=== PATIENT | male | born 1985 | race Caucasian/White ===

== ENCOUNTER 2016-11-30 01:28 | Emergency (ER) | payer BC, OTHER ==
[~2016-11-30 01:28] MED LIST: AMIT100T2 PO; ATOR20TA15 PO; FLUO1TAB3 PO; LISI-515 PO; PRAZ1CAP PO; ZOFR4TAB3 SL
[2016-11-30 01:38] VITALS: BP 131/71; PULSE 109; RESP 20; TEMP 98.5; O2SAT 96
[2016-11-30 05:45] VITALS: BP 149/78; PULSE 89; RESP 19; TEMP 98; O2SAT 99
--- NOTE | 2016-11-30 05:58 | PD ---
HPI Chief Complaint: Psychiatric Symptoms Time Seen by Provider: 05:03 Travel History International Travel<30 days: No Contact w/Intl Traveler<30days: No Traveled to known affect area: No History of Present Illness HPI 31-year-old male with history of PTSD and bipolar disorder presents to the nursing department under Campos act transfer from [place]. Patient was medically cleared there. Per report the patient has been increasingly agitated over the last few days. He has not been sleeping. Patient denies any acute medical needs at this time. PFSH Past Medical History AAA: No ADD: No ADHD: No Alzheimer's Disease: No Anemia: No Arthritis: No Asthma: Yes Atrial Fibrillation: No Autoimmune Disease: No Blood Disorders: No Bipolar Disorder: Yes Anxiety: Yes Depression: No Heart Rhythm Problems: No Cancer: No Cardiac Catheterization: No Cardiomyopathy: No Cardiovascular Problems: No (not reported) Cerebral Palsy: No High Cholesterol: No Chemotherapy: No Chest Pain: No Congestive Heart Failure: No Cirrhosis: No COPD: No Cerebrovascular Accident: No Coronary Artery Disease: No Cystic Fibrosis: No Dementia: No Developmental Delay: No Diabetes: No Patient Takes Glucophage: No Dialysis: No Diminished Hearing: No Diverticulitis: No Deep Vein Thrombosis: No Endocrine: No Fibromyalgia: No Gastrointestinal Disorders: No Genetic Disorder: No GERD: No Glaucoma: No Gout: No Genitourinary: No Headaches: No Hepatitis: No Hiatal Hernia: No Heparin Induced Thrombocytopen: No Herniated Disk: No Hypertension: Yes Immune Disorder: No Inguinal Hernia: No Implanted Vascular Access Dvce: No Insomnia: Yes Kidney Stones: No Medical other: No Musculoskeletal: No Neurologic: No Parkinson's Disease: No Psychiatric: Yes Reproductive: No Respiratory: Yes Resp. Syncytial Virus (RSV): No Integumentary: No Immunizations Current: Yes Migraines: No Myocardial Infarction: No Pancreatitis: No Pneumonia: No Radiation Therapy: No Schizophrenia: No Seizures: No Shingles: No Sickle Cell Disease: No Sleep Apnea: No Thyroid Disease: No Ulcer: No Tetanus Vaccination: < 5 Years Influenza Vaccination: No ?: Not Menopausal: No Ectopic : No Ovarian Cysts: No Dilation and Curettage (D&C): No Tubal Ligation: No Past Surgical History Abdominal Aneurysm Repair: No Abdominal Surgery: Yes (APPENDICITIS) AICD: No Appendectomy: Yes Arteriovenous Shunt: No Cardiac Surgery: No Section: No Cholecystectomy: No Coronary Artery Bypass Graft: No Coronary Stent: No Ear Surgery: No Endocrine Surgery: No Eye Surgery: No Genitourinary Surgery: No Gynecologic Surgery: No Hysterectomy: No Insulin Pump: No Joint Replacement: No Mastectomy: No Neurologic Surgery: No Oral Surgery: Yes (WISDOM TEETH) Pacemaker: No Prostatectomy: No Thoracic Surgery: No Tonsillectomy: No Tympanostomy Tube: No Valve Replacement: No Other Surgery: No Family History Family Breast Cancer: No Family Myocardial Infarction: No Family Hypercholesterolemia: No Social History Alcohol Use: Yes Tobacco Use: Yes Substance Use: Yes Allergies-Medications (Allergen,Severity, Reaction): Coded Allergies: penicillin G (Unverified Allergy, Severe, RASH, 11/29/16) Penicillins (Verified Allergy, Unknown, 11/29/16) Reported Meds & Prescriptions Reported Meds & Active Scripts Active Reported Fluoxetine (Fluoxetine HCl) 20 Mg Tab 20 Mg PO DAILY Prazosin (Prazosin HCl) 1 Mg Cap 1 Mg PO HS Amitriptyline (Amitriptyline HCl) 100 Mg Tab 100 Mg PO HS Lisinopril 20 Mg Tab 20 Mg PO DAILY Atorvastatin (Atorvastatin Calcium) 20 Mg Tab 20 Mg PO HS Zofran Odt (Ondansetron Odt) 4 Mg Tab 4 Mg SL Q6HR PRN Review of Systems Except as stated in HPI: all other systems reviewed are Neg Physical Exam Narrative GENERAL: Well-nourished, well-developed male patient in no acute distress SKIN: Focused skin assessment warm/dry. HEAD: Normocephalic. EYES: No scleral icterus. No injection or drainage. NECK: Supple, trachea midline. No JVD or lymphadenopathy. CARDIOVASCULAR: Regular rate and rhythm without murmurs, gallops, or rubs. RESPIRATORY: Breath sounds equal bilaterally. No accessory muscle use. GASTROINTESTINAL: Abdomen soft, non-tender, nondistended. MUSCULOSKELETAL: No cyanosis, or edema. BACK: Nontender without obvious deformity. No CVA tenderness. Data Data Last Documented VS Vital Signs Date Time Temp Pulse Resp B/P (MAP) Pulse Ox O2 Delivery O2 Flow Rate FiO2 11/30/16 05:45 98.0 89 19 149/78 (101) 99 Room Air Orders Orders Psych Screen (11/30/16 01:51) Diet Regular Basic (11/30/16 Breakfast) MDM Medical Decision Making Medical Screen Exam Complete: Yes Emergency Medical Condition: Yes Medical Record Reviewed: Yes Differential Diagnosis Mood disorder versus personality disorder versus adjustment reaction disorder Narrative Course 31-year-old male presents to the emergency department as a transfer from [place] [facility] for psychiatric evaluation. Patient appears without distress. He reports no acute medical needs. He remains medically cleared to undergo psychiatric screening for further evaluation and disposition. Mental health screening discussed with the patient. Psychiatric screen ordered. Diagnosis Primary Impression: Bipolar 1 disorder Condition: Stable Tiara Guevara Nov 30, 2016 05:58
--- NOTE | 2016-11-30 14:57 | PD ---
History of Present Illness Chief Complaint: Psychiatric Symptoms Time Seen by Provider: 14:20 Travel History International Travel<30 Days: No Contact w/Intl Traveler<30days: No Known affected area: No Legal Status Legal Status: Campos Act Campos Act Comment: PATIENT MARGIE ACTED BY EBER JORDAN History of Present Illness: History of Present Illness HPI 31-year-old male with history of PTSD and bipolar disorder who presents to ED under Campos act as a transfer from [place]. Per report the patient has been increasingly agitated over the last few days. He has not been sleeping and has been more aggressive .The patient has been monitored here in [facility] and he has been sleeping and has not presented any agitation or aggressive behavior. Patient is alert, oriented,, calm, engaging. Speech is clear,logical , no pressure. There is no psychosis, no gabriele and no hypomania. No suicdal or homicidal ideation. The Patient reports that he has not been aggressive although he admits that he has bee irritable and "loud at times". Reports medication compliance. PFSH Past Medical History AAA: No ADD: No ADHD: No Alzheimer's Disease: No Anemia: No Arthritis: No Asthma: Yes Atrial Fibrillation: No Autoimmune Disease: No Blood Disorders: No Bipolar Disorder: Yes Anxiety: Yes Depression: No Heart Rhythm Problems: No Cancer: No Cardiac Catheterization: No Cardiomyopathy: No Cardiovascular Problems: No (not reported) Cerebral Palsy: No High Cholesterol: No Chemotherapy: No Chest Pain: No Congestive Heart Failure: No Cirrhosis: No COPD: No Cerebrovascular Accident: No Coronary Artery Disease: No Cystic Fibrosis: No Dementia: No Developmental Delay: No Diabetes: No Patient Takes Glucophage: No Dialysis: No Diminished Hearing: No Diverticulitis: No Deep Vein Thrombosis: No Endocrine: No Fibromyalgia: No Gastrointestinal Disorders: No Genetic Disorder: No GERD: No Glaucoma: No Gout: No Genitourinary: No Headaches: No Hepatitis: No Hiatal Hernia: No Heparin Induced Thrombocytopen: No Herniated Disk: No Hypertension: Yes Immune Disorder: No Inguinal Hernia: No Implanted Vascular Access Dvce: No Insomnia: Yes Kidney Stones: No Medical other: No Musculoskeletal: No Neurologic: No Parkinson's Disease: No Psychiatric: Yes Reproductive: No Respiratory: Yes Resp. Syncytial Virus (RSV): No Integumentary: No Immunizations Current: Yes Migraines: No Myocardial Infarction: No Pancreatitis: No Pneumonia: No Radiation Therapy: No Schizophrenia: No Seizures: No Shingles: No Sickle Cell Disease: No Sleep Apnea: No Thyroid Disease: No Ulcer: No Tetanus Vaccination: < 5 Years Influenza Vaccination: No ?: Not Menopausal: No Ectopic : No Ovarian Cysts: No Dilation and Curettage (D&C): No Tubal Ligation: No Past Surgical History Abdominal Aneurysm Repair: No Abdominal Surgery: Yes (APPENDICITIS) AICD: No Appendectomy: Yes Arteriovenous Shunt: No Cardiac Surgery: No Section: No Cholecystectomy: No Coronary Artery Bypass Graft: No Coronary Stent: No Ear Surgery: No Endocrine Surgery: No Eye Surgery: No Genitourinary Surgery: No Gynecologic Surgery: No Hysterectomy: No Insulin Pump: No Joint Replacement: No Mastectomy: No Neurologic Surgery: No Oral Surgery: Yes (WISDOM TEETH) Pacemaker: No Prostatectomy: No Thoracic Surgery: No Tonsillectomy: No Tympanostomy Tube: No Valve Replacement: No Other Surgery: No Psychiatric History Psychiatric History [place] [facility] [place] [address] [facility] for outpatietn History of Inpatient Treatment: Yes Guns or firearms in home: No Social History Single male. Lives with his mother. 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 Hx of Substance Use Treatment: Yes Family Psychiatric History Negative Allergies-Medications (Allergen,Severity, Reaction): Coded Allergies: penicillin G (Unverified Allergy, Severe, RASH, 11/29/16) Penicillins (Verified Allergy, Unknown, 11/29/16) Reported Meds & Prescriptions Reported Meds & Active Scripts Active Reported Fluoxetine (Fluoxetine HCl) 20 Mg Tab 20 Mg PO DAILY Prazosin (Prazosin HCl) 1 Mg Cap 1 Mg PO HS Amitriptyline (Amitriptyline HCl) 100 Mg Tab 100 Mg PO HS Lisinopril 20 Mg Tab 20 Mg PO DAILY Atorvastatin (Atorvastatin Calcium) 20 Mg Tab 20 Mg PO HS Zofran Odt (Ondansetron Odt) 4 Mg Tab 4 Mg SL Q6HR PRN Review of Systems Except as stated in HPI: all other systems reviewed are Neg Exam Alert: Yes [place]: Person (ox4) Mood: Calm Affect: Appropriate Speech: Clear, Logical Eye Contact: Normal Memory Intact: Comment (No impairmetn) Hallucinations: Other (Negative) Delusions: No Suicidal: Ideation (Deneis any) Homicidal: Ideation (Deneis any) Insight/Judgement Fair . Not impaired. MDM Medical Decision Making Medical Record Reviewed: Yes Assessment/Plan 31-year-old male with history of PTSD and bipolar disorder who presents to ED under Campos act as a transfer from [place]. Per report the patient has been increasingly agitated over the last few days. He has not been sleeping and has been more aggressive .The patient has been monitored here in [facility] . He has been sleeping and has not presented any agitation or aggressive behavior or any signs of gabriele or hypomania. Patient does not meet criteria for Ba and it will be lifted. Psychiatrically cleared for discharge. To follow up with his outpatient psychiatric provider. Orders Orders Psych Screen (11/30/16 01:51) Diet Regular Basic (11/30/16 Breakfast) Diet Regular Basic (11/30/16 Lunch) Results Vital Signs Date Time Temp Pulse Resp B/P (MAP) Pulse Ox O2 Delivery O2 Flow Rate FiO2 11/30/16 05:45 98.0 89 19 149/78 (101) 99 Room Air 11/30/16 01:38 98.5 109 20 131/71 (91) 96 Room Air Diagnosis Primary Impression: Bipolar 1 disorder Psychiatrically Cleared: Yes Med/ Other Pt Specific Info: No Change to Meds Disposition: 01 DISCHARGE HOME Condition: Stable Keke Gandara Nov 30, 2016 14:57
[2016-11-30 17:19] VITALS: BP 147/85; PULSE 88; RESP 16; TEMP 98.2; O2SAT 99
--- NOTE | 2016-11-30 17:34 | PD ---
Physical Exam Time Seen by Provider: 17:29 Narrative SOLITARIO Davies evaluated the patient, lifted the Campos act and the patient will be discharged home. Data Data Last Documented VS Vital Signs Date Time Temp Pulse Resp B/P (MAP) Pulse Ox O2 Delivery O2 Flow Rate FiO2 11/30/16 17:19 98.2 88 16 147/85 (105) 99 Room Air Orders Orders Psych Screen (11/30/16 01:51) Diet Regular Basic (11/30/16 Breakfast) Diet Regular Basic (11/30/16 Lunch) Diet Regular Basic (11/30/16 Dinner) MDM Supervised Visit with FAN: Yes Narrative Course SOLITARIO Davies has evaluated the patient, lifted the Campos act and the patient will be discharged home. Patient contracts safety. Denies suicidal or homicidal ideations. Patient will be provided community resource packet to [facility] for follow-up. Has friends and family for support. Patient is medically cleared for discharge. Diagnosis Primary Impression: Bipolar 1 disorder Referrals: [facility] Psychiatrist [facility] Additional Instruction: Contract safety to your self and others Follow-up with psychiatry Follow-up with primary care provider Follow-up with Pavel Soler Return to the emergency department immediately with worsening of symptoms Med/Other Pt SpecificInfo: No Meds Exist/No RX given Disposition: 01 DISCHARGE HOME Condition: Stable Melinda Ambrosio Nov 30, 2016 17:34
== END 2016-11-30 18:30 | disposition home or self-care (01) ==
LOC: NEPJ 01:28
DX: F31.9 Bipolar disorder, unspecified (principal); J45.909 Unspecified asthma, uncomplicated; I10 Essential (primary) hypertension; Z72.0 Tobacco use
CPT/HCPCS: 99284

== ENCOUNTER 2017-01-01 23:00 | Inpatient (IN) | payer BC, OTHER ==
[2017-01-02] MEDS ORDERED: diphenhydrAMINE HCL 50 MG CAP - HS PRN PO (00:30)
[2017-01-02] MEDS ORDERED: ALUMINUM/MAGNESIUM/SIMETH 30 ML CUP PO PRN (00:30)
[2017-01-02] MEDS ORDERED: BENZTROPINE MESYLATE 2 MG/2 ML VIAL IM PRN (00:30)
[2017-01-02] MEDS ORDERED: BENZTROPINE MESYLATE 1 MG TAB PO PRN (00:30)
[2017-01-02] MEDS ORDERED: LORazepam 1 MG TAB PO PRN ×2 (00:30→11:45)
[2017-01-02] MEDS ORDERED: LORazepam 2 MG/ML VIAL IM PRN (00:30)
[2017-01-02] MEDS ORDERED: MAGNESIUM HYDROXIDE SUSP 30 ML CUP PO PRN (00:30)
[2017-01-02] MEDS ORDERED: diphenhydrAMINE HCL 50 MG/ML VIAL - HS PRN IM (00:30)
[2017-01-02 00:41] VITALS: BP 139/83; PULSE 101; RESP 18; TEMP 98.2
--- NOTE | 2017-01-02 08:56 | HHI.HP ---
Provisional Diagnosis Admission Date Jan 01, 2017 at 23:00 Crane I. 1. Bipolar disorder, presently manic, moderate Rule out component of drug-induced mood disorder 2. Cannabis abuse Crane II. Deferred Certification of Person's Competence To Provide Express and Informed Consent I have personally examined Brock Marrero , a person being served at [facility] on, Jan 02, 2017 08:56. Express and informed consent means consent voluntarily given in writing, by a competent person, after sufficient explanation and disclosure of the subject matter involved to enable the person to make a knowing and willful decision without any element of force, fraud, deceit, duress, or other form of constraint or coercion. This person is 18 years of age or older, is not now known to be incompetent to consent to treatment with a guardian advocate, and does not have a health care surrogate or proxy currently making medical treatment decisions. I have found this person to be one of the following: [x] Competent to provide express and informed consent, as defined above, for voluntary admission to this facility and is competent to provide express and informed consent for treatment. He/she has the consistent capacity to make well reasoned, willful, and knowing decisions concerning his or her medical or mental health treatment. The person fully and consistently understands the purpose of the admission for examination/placement and is fully capable of personally exercising all rights assured [place] Incompetent to provide express and informed consent to voluntary admission, and this is incompetent to provide express and informed consent to treatment. The person must be transferred to involuntary status and a petition for a guardian advocate filed with the Circuit Court. [] Refusing to provide express and informed consent to voluntary admission but is competent to provide express and informed consent for treatment. The person must be discharged or transferred to involuntary status. Form shall be completed within 24 hours of a person's arrival at the receiving facility and filed in the clinical record of each person: 1. Admitted on a voluntary basis 2. Permitted to provide express and informed consent to his/her own treatment 3. Allowed to transfer from involuntary to voluntary status 4. Prior to permitting a person to consent to his or her own treatment after having been previously found incompetent to consent to treatment. History of Present Illness Capacity: Has Capacity Psych Chief Complaint: Diane HPI Mr. Marrero is a 31-year-old male with a reported history of bipolar disorder and posttraumatic stress disorder who presents in transfer from [facility] under a [facility] act. Reviewing the documentation from [facility] made appears that the patient was brought into the emergency department by his mother and brother because he "walked until he got blisters on his feet." Collateral obtained by the psychiatric screener in the emergency department at [facility] indicates that the patient has been spending excessively and presented with rapid speech and flight of ideas. Reviewing our own electronic medical record, I note that the patient was evaluated by nurse practitioner Juliocesar on 11/30/2016. I also note the patient was psychiatrically admitted under Dr. Barbosa in June of last year. Patient seen and examined. Chart reviewed. Case discussed in treatment team. Case discussed with nursing staff. I find the patient clad in a T-shirt with cannabis leaves. He presents with rapid speech and loosening of associations. He says that he has been sleeping poorly and has been smoking cannabis "to calm down." This cannabis is reportedly prescribed to him by a Dr. Bryson for PTSD , although when I asked what his trauma was, he tells me "every day is a grind and I'd rather be smoking weed." He says that because he couldn't sleep he instead decided to wander for miles because ideas were "bouncing around" in his head. Mood is "I feel great!" He is somewhat grandiose and describes a plan to found an [employer] school to link [place] students and Greek students. Somewhat disinhibited; when I ask about marital status he replies "I'm looking if you're interested. I like doctors." Denies AVH. No other delusional material. No depressive symptoms. No frandy liv PTSD symptoms. Remainder of the psychiatric ROS is negative. Patient verbalizes no physical complaints besides foot pain. Past psychiatric history: The patient reports a history of PTSD and bipolar disorder. He says that he sees a psychiatrist "online" whose name he does not know, perhaps referring to telepsychiatry. He says that he is prescribed amitriptyline, Prozac and prazosin. He says that his most recent psychiatric admission was here at [place]. He denies a history of suicide attempts. With the patient's permission, I have obtained collateral information from his mother, Melva Marrero, over the phone. She notes patient has had a BPAD diagnosis for 6 years. He reportedly has been seeing a psychiatrist online who Rx'd Xanax and amitriptyline. Mother notes he has chronic sleep difficulties. He started medical cannabis to try to sleep but immediately began abusing it per mother. She tells me he has a history of substance use issues including DUI and hammer driver's license has been revoked. She already tried to [place] act him during this episode but says the petition was declined by the operations trainer. Mother tried to take pt in for voluntary psych eval earlier in the week because he was in a manic state but patient declined; he ended up walking several miles. She notes that he has not done well with lithium or Seroquel. Review of Systems ROS Limitations: Poor Historian Except as stated in HPI: all other systems reviewed are Neg Past Psych History Psychological trauma history Patient denies any history of physical, verbal or sexual abuse or other trauma. Violence risk - others (6 mos) Low imminent risk. No homicidal ideation. No known history of violence. Violence risk - self (6 mos) Concern for elevated risk due to self-neglect in manic state. Denies suicidal ideation. Denies a history of suicide attempts. Substance Abuse History Drugs/Alcohol past 12 months Patient reports that he is prescribed medical cannabis and uses this daily for a diagnosis of "PTSD." He drinks about 1 beer daily. He smokes cigarettes and cigars. Denies any other substance use. Past Family Social History Coded Allergies: penicillin G (Unverified Allergy, Severe, RASH, 11/29/16) Penicillins (Verified Allergy, Unknown, 11/29/16) Past Medical History Patient endorses a history of hypertension and hyperlipidemia. Reported Medications Fluoxetine (Fluoxetine) 20 Mg Tab, 20 MG PO DAILY, #30 TAB 0 Refills 11/29/16 Prazosin (Prazosin) 1 Mg Cap, 1 MG PO HS for Blood Pressure Management, #60 CAP 0 Refills 11/29/16 Amitriptyline (Amitriptyline) 100 Mg Tab, 100 MG PO HS, TAB 11/29/16 Lisinopril (Lisinopril) 20 Mg Tab, 20 MG PO DAILY, #30 TAB 0 Refills 11/29/16 Atorvastatin (Atorvastatin) 20 Mg Tab, 20 MG PO HS for Cholesterol Management, # 30 TAB 0 Refills 11/29/16 Ondansetron Odt (Zofran Odt) 4 Mg Tab, 4 MG SL Q6HR Y for Nausea/Vomiting, #30 TAB 0 Refills 11/29/16 Current Medications Medications (Trade) Dose Ordered Sig/Su Route Start Time Stop Time Status Last Admin (Ativan) 1 mg Q6H PRN PO 01/02/17 00:30 (Ativan Inj) 1 mg Q6H PRN IM 01/02/17 00:30 (Cogentin) 1 mg Q12H PRN PO 01/02/17 00:30 (Cogentin Inj) 1 mg Q12H PRN IM 01/02/17 00:30 (Benadryl) 50 mg HS PRN PO 01/02/17 00:30 (Benadryl Inj) 50 mg HS PRN IM 01/02/17 00:30 (Tylenol) 650 mg Q4H PRN PO 01/02/17 00:30 (Milk Of Magnesia Liq) 30 ml DAILY PRN PO 01/02/17 00:30 (Mag-Al Plus Susp Liq) 30 ml Q6H PRN PO 01/02/17 00:30 (Habitrol 21 Mg Patch.24 Hr) 1 patch DAILY T-DERMAL 01/02/17 09:00 Miscellaneous Information 1 HS T-DERMAL 01/02/17 21:00 Family Psych History Patient denies any family psychiatric history Social History Patient reports that he lives with his mother. He reports that he has a bachelor's degree in [employer] from [employer]. 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 He is single with no children. He says he spent 9 years in the [employer] but was dishonorably discharged because of his substance use. He denies any legal history. He does endorse rastafarian beliefs. Patient's Strengths (min. 2) In a monitored setting. Verbally fluent. Physical Exam Physical examination was completed by ED provider at outside hospital. On my examination today, the patient appears to be in no acute physical distress. I do note that his bilateral feet are mildly swollen with a few blisters evident. No abnormal motor movements noted. Labs and vitals reviewed: Vital Signs Vital Signs Date Time Temp Pulse Resp B/P (MAP) Pulse Ox O2 Delivery O2 Flow Rate FiO2 01/02/17 00:41 98.2 101 18 139/83 (101) Lab Results Urine toxicology positive for cannabinoids. CBC reveals mild anemia with a hemoglobin of 13.2. BMP reveals mildly elevated creatinine at 1.69. TSH within normal limits. Alcohol level undetectable. Urinalysis reveals 1+ protein. Mental Status Examination Appearance: Appropriate Consciousness: Alert Orientation: x4 Motor Activity: Normal gait, Other (no motor abnormalities noted) Speech: Pressured Language: Adequate Fund of Knowledge: Adequate Attention and Concentration: Easily Distracted Memory: Unremarkable Mood: Other ("great!") Affect: Other (expansive) Thought Process & Associations: Loose associations Thought Content: Other (grandiosity) Hallucination Type: None Delusion Type: Other (grandiosity, unclear if of delusional intensity) Suicidal Ideation: No (unreliable to contract for safety) Suicidal Plan: No Suicidal Intention: No Homicidal Ideation: No Homicidal Plan: No Homicidal Intention: No Insight: Poor Judgment: Poor Assessment & Plan Problem List: (1) Bipolar 1 disorder, manic, moderate ICD Codes: F31.12 - Bipolar disorder, current episode manic without psychotic features, moderate (2) Cannabis abuse ICD Codes: F12.10 - Cannabis abuse, uncomplicated Assessment & Plan 31-year-old male with psychiatric history as detailed above who presents in transfer from outside hospital under a Campos act. On my examination today, the patient presents in a manic state of moderate severity. I suspect current episode was precipitated by cannabis use, and his use of substances including the cannabis does seem to be problematic both based on his own report and collateral from mother. Given the severity of his symptoms and the concern for self-care deficit, patient requires psychiatric hospitalization at this time for safety, observation and stabilization. Admit inpatient. Voluntary status. Check EKG, CMP and CK. So long as LFTs ok , plan to start Depakote ER ~25mg/kg for mood stabilization. Given the magnitude of the dose, I will plan to administer this in divided doses. Plan to check a Depakote and ammonia level after the appropriate interval. Additionally for mood stabilization and for sleep, start Zyprexa 10mg qHS with plans to titrate to effect. R/B/A for both Zyprexa and Depakote d/w pt. Given that the patient was reportedly recently prescribed Xanax and may have been abusing this medication, I will start the patient on a CIWA scale with Ativan for the management of any withdrawal. Seizure and fall precautions. Atarax as needed for anxiety, Cogentin as needed for EPS, Benadryl his need for sleep. Continue patient's lisinopril and atorvastatin for hypertension and hyperlipidemia; nurse has confirmed doses with patient's pharmacy. Consult to the hospitalist for patient's feet as well as history of hypertension and hyperlipidemia. OT eval. Vitals every shift. Counselor to see. Disposition planning. Estimated length of stay: 5-7 days. Discharge Planning Pending psychiatric stabilization Request HC Surrog/Guard Advoc?: No (not at this time) Brock Page MD Jan 02, 2017 08:56
[2017-01-02] MEDS: NICOTINE 21 MG/24 HR PATCH T-DERMAL SCH (09:08)
[2017-01-02] MEDS ORDERED: LORazepam 2 MG TAB PO PRN (11:45)
[2017-01-02] MEDS ORDERED: LORazepam 2 MG/ML VIAL IV PUSH PRN ×4 (11:45)
[2017-01-02] MEDS ORDERED: DIVALPROEX SODIUM E.R. 500 MG TAB PO SCH (11:45)
[2017-01-02] MEDS ORDERED: FLUMAZENIL 0.5 MG/5 ML VIAL IV PUSH PRN (11:45)
[2017-01-02 12:19] VITALS: BP 174/90; PULSE 96; RESP 14; TEMP 97.5; O2SAT 98
[2017-01-02] MEDS ORDERED: cloNIDine HCL 0.1 MG TAB PO PRN (13:15)
[2017-01-02] MEDS: DIVALPROEX SODIUM E.R. 500 MG TAB PO SCH ×2 (13:16→20:58)
[2017-01-02] MEDS: DIVALPROEX SODIUM E.R. 250 MG TAB PO SCH ×2 (13:16→20:58)
[2017-01-02] MEDS: ACETAMINOPHEN 325 MG TAB PO PRN (13:31)
[2017-01-02] MEDS: LISINOPRIL 20 MG TAB PO SCH (14:00)
--- NOTE | 2017-01-02 14:11 | PD.CONS ---
HPI Service [facility] Consult Requested By Dr. Page Reason for Consult Medical management Primary Care Physician Unknown Diagnoses: (1) Hypertension (2) Bipolar 1 disorder, manic, moderate History of Present Illness 31 Y/O male with history of HTN, bipolar disorder admitted to the psychiatric unit for exacerbation of bipolar. Patient has been manic and walking long distances. His blood pressure uncontrolled in arrival. Patient denies any issues except for mild swelling of his feet which he attributes to a lot of walking in bad shoes. He also eat a lot of salt daily. Review of Systems Constitutional: DENIES: Fever, Chills Respiratory: DENIES: Shortness of breath Cardiovascular: DENIES: Chest pain, Palpitations Except as stated in HPI: all other systems reviewed are Neg Past Family Social History Allergies: Coded Allergies: penicillin G (Unverified Allergy, Severe, RASH, 11/29/16) Penicillins (Verified Allergy, Unknown, 11/29/16) Past Medical History HTN Bipolar Past Surgical History Appendectomy Reported Medications Reported Meds & Active Scripts Active Reported Fluoxetine (Fluoxetine HCl) 20 Mg Tab 20 Mg PO DAILY Prazosin (Prazosin HCl) 1 Mg Cap 1 Mg PO HS Amitriptyline (Amitriptyline HCl) 100 Mg Tab 100 Mg PO HS Lisinopril 20 Mg Tab 20 Mg PO DAILY Atorvastatin (Atorvastatin Calcium) 20 Mg Tab 20 Mg PO HS Zofran Odt (Ondansetron Odt) 4 Mg Tab 4 Mg SL Q6HR PRN Family History Non contributory. Social History Admits to using alcohol, tobacco, and multiple illicit substance Physical Exam Vital Signs Vital Signs Date Time Temp Pulse Resp B/P (MAP) Pulse Ox O2 Delivery O2 Flow Rate FiO2 01/02/17 12:19 97.5 96 14 174/90 (118) 98 01/02/17 00:41 98.2 101 18 139/83 (101) Physical Exam GENERAL: No apparent distress. SKIN: Bilateral feet with multiple punctate lesions consistent with insect bites. HEAD: Atraumatic. Normocephalic. No temporal or scalp tenderness. EYES: Pupils equal round and reactive. ENT: Nose drainage. Uvula midline. Airway patent. NECK: Trachea midline. No JVD or lymphadenopathy. Supple, nontender, no meningeal signs. CARDIOVASCULAR: Regular rate and rhythm without murmurs, gallops, or rubs. RESPIRATORY: Clear to auscultation. Breath sounds equal bilaterally. No wheezes , rales, or rhonchi. GASTROINTESTINAL: Abdomen soft, non-tender, nondistended. MUSCULOSKELETAL: Extremities without clubbing, cyanosis, or edema. No joint tenderness, effusion, or edema noted. No calf tenderness. Negative Homans sign bilaterally. NEUROLOGICAL: Awake and alert. Cranial nerves II through XII intact. Motor and sensory grossly within normal limits. Five out of 5 muscle strength in all muscle groups. Normal speech. Assessment and Plan Problem List: (1) Bipolar 1 disorder, manic, moderate ICD Code: F31.12 - Bipolar disorder, current episode manic without psychotic features, moderate Plan: Management per psychiatry. (2) Hypertension ICD Code: I10 - Essential (primary) hypertension Plan: Continue Lisinopril. Clonidine PRN Monitor BP. Advised patient to reduce salt intake Elevate legs Assessment and Plan Patient is medically stable. Will sign off. Please call or reconsult as needed. Nasim Vogt MD Jan 02, 2017 14:11
[2017-01-02 15:24] VITALS: BP 154/82; PULSE 90; RESP 17; TEMP 97.9; O2SAT 100
[2017-01-02 15:30] LABS: ALKALINE PHOSPHATASE 54 U/L (45-117); CREATINE KINASE 157 U/L (39-308); TOTAL BILIRUBIN ADULT 0.2 MG/DL (0.2-1.0)
[2017-01-02 15:36] LABS: ALT (GPT) 29 U/L (12-78); ANION GAP 7 MEQ/L (5-15); AST (GOT) 21 U/L (15-37); BICARBONATE 30.1 MEQ/L (21.0-32.0); BLOOD UREA NITROGEN 11 MG/DL (7-18); CHLORIDE 102 MEQ/L (98-107); GLOMERULAR FILTRATION RATE 101 ML/MIN (>89); POTASSIUM 4.1 MEQ/L (3.5-5.1); SODIUM (NA) 139 MEQ/L (136-145)
[2017-01-02 16:44] VITALS: BP 154/82; PULSE 90; RESP 18; TEMP 97.9; O2SAT 100
[2017-01-02] MEDS: hydrOXYzine HCL 50 MG TAB PO PRN (20:58)
[2017-01-02] MEDS ORDERED: ATORVASTATIN 20 MG TAB PO SCH (21:00)
[2017-01-02] MEDS ORDERED: OLANZapine ODT 10 MG TAB PO SCH (21:00)
[2017-01-02] MEDS ORDERED: REMOVE OLD NICOTINE PATCH T-DERMAL SCH (21:00)
--- NOTE | 2017-01-02 21:17 | EKG ---
Date Performed: 01/02/2017 Time Performed: 12:33:19 PTAGE: 31 years EKG: SINUS TACHYCARDIA ABNORMAL RHYTHM ECG PREVIOUS TRACING : 05/27/2014 22.35 Compared to prior tracing no significant change DOCTOR: Mian Slater Interpretating Date/Time 01/02/2017 21:15:12
[2017-01-03 05:45] VITALS: BP 140/84; PULSE 84; RESP 17; TEMP 98; O2SAT 99
[2017-01-03] MEDS: ACETAMINOPHEN 325 MG TAB PO PRN ×2 (06:49→12:26)
[2017-01-03] MEDS: NICOTINE 21 MG/24 HR PATCH T-DERMAL SCH (06:49)
[2017-01-03] MEDS: DIVALPROEX SODIUM E.R. 500 MG TAB PO SCH (08:57)
[2017-01-03] MEDS: DIVALPROEX SODIUM E.R. 250 MG TAB PO SCH (08:57)
[2017-01-03] MEDS: hydrOXYzine HCL 50 MG TAB PO PRN (08:58)
[2017-01-03] MEDS: LISINOPRIL 20 MG TAB PO SCH (08:58)
[2017-01-03] MEDS ORDERED: ZYPR10TA PO (09:43)
[2017-01-03] MEDS ORDERED: DEPA500T3 PO (09:43)
--- NOTE | 2017-01-03 09:43 | HHI.DS ---
Psychiatry Discharge Summary Inpatient Psychiatric care?: Yes Advance Directive: No Reason Not Provided: doesn t have Mental Health AdvanceDirective: No Health Care Proxy: No Admission Admission Date Jan 01, 2017 at 23:00 Admission Diagnosis: (1) Bipolar 1 disorder, manic, moderate ICD Code: F31.12 - Bipolar disorder, current episode manic without psychotic features, moderate (2) Cannabis abuse ICD Code: F12.10 - Cannabis abuse, uncomplicated Brief History Mr. Marrero is a 31-year-old male with a reported history of bipolar disorder and posttraumatic stress disorder who presents in transfer from [facility] under a Campos act. Reviewing the documentation from [facility] made appears that the patient was brought into the emergency department by his mother and brother because he "walked until he got blisters on his feet." Collateral obtained by the psychiatric screener in the emergency department at [facility] indicates that the patient has been spending excessively and presented with rapid speech and flight of ideas. Reviewing our own electronic medical record, I note that the patient was evaluated by nurse practitioner Juliocesar on 11/30/2016. I also note the patient was psychiatrically admitted under Dr. Barbosa in June of last year. Patient seen and examined. Chart reviewed. Case discussed in treatment team. Case discussed with nursing staff. I find the patient clad in a T-shirt with cannabis leaves. He presents with rapid speech and loosening of associations. He says that he has been sleeping poorly and has been smoking cannabis "to calm down." This cannabis is reportedly prescribed to him by a Dr. Bryson for PTSD , although when I asked what his trauma was, he tells me "every day is a grind and I'd rather be smoking weed." He says that because he couldn't sleep he instead decided to wander for miles because ideas were "bouncing around" in his head. Mood is "I feel great!" He is somewhat grandiose and describes a plan to found an [employer] school to link [place] students and [place] students. Somewhat disinhibited; when I ask about marital status he replies "I'm looking if you're interested. I like doctors." Denies AVH. No other delusional material. No depressive symptoms. No frandy liv PTSD symptoms. Remainder of the psychiatric ROS is negative. Patient verbalizes no physical complaints besides foot pain. Past psychiatric history: The patient reports a history of PTSD and bipolar disorder. He says that he sees a psychiatrist "online" whose name he does not know, perhaps referring to telepsychiatry. He says that he is prescribed amitriptyline, Prozac and prazosin. He says that his most recent psychiatric admission was here at [facility]. He denies a history of suicide attempts. With the patient's permission, I have obtained collateral information from his mother, Melva Marrero, over the phone. She notes patient has had a BPAD diagnosis for 6 years. He reportedly has been seeing a psychiatrist online who Rx'd Xanax and amitriptyline. Mother notes he has chronic sleep difficulties. He started medical cannabis to try to sleep but immediately began abusing it per mother. 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 She already tried to [place] act him during this episode but says the petition was declined by the cushion builder. Mother tried to take pt in for voluntary psych eval earlier in the week because he was in a manic state but patient declined; he ended up walking several miles. She notes that he has not done well with lithium or Seroquel. Tobacco Use In Past 30 Days: 5 or More Cigarettes/Day Alcohol Use: 2-4 Times Per Month Hospital Course Patient was admitted to a locked, inpatient psychiatric unit. A general medical consultation was obtained. Appropriate precautions were in place throughout patient's hospital stay. Patient was seen and examined on the unit by psychiatry and also visited by counselor. Psychotropic medications were adjusted. Patient tolerated medications well without side effects. There was no evidence of any suicidality or homicidality on the inpatient unit. The patient remained in generally good behavioral control and was compliant with medications. Once allowed to sign voluntary, the patient immediately completed a right of release, set to today. On the day of discharge: Patient seen and examined with nurse. Chart reviewed. Hospitalist input noted and appreciated. Case discussed with nursing staff. No behavioral issues noted overnight. Case discussed with counselor. On my examination today, the patient is insisting on discharge from the inpatient unit today. He denies any suicidal or homicidal ideation, intent or plan on direct questioning and contracts for safety. He is future oriented. Mood remains a little elevated and affect somewhat expansive. Speech remains pressured and he is somewhat intrusive. He does say that he slept well overnight with the addition of Zyprexa. No other hypomanic or manic symptoms. No depressive symptoms elicited. No psychotic symptoms: No audiovisual hallucinations or delusional material. He says that his plan on discharge is to withdraw money from his bank across the street, go to his medical cannabis dispensary, and check in to a local upscale hotel with a steak house where he can get a rare steak. He denies side effects from medications. No physical complaints. Weighing the acute, chronic, and protective factors and based on the available evidence, I cushion builder to a reasonable degree of medical certainty that the patient does not presently meet criteria for involuntary psychiatric hospitalization. However, he does remain somewhat manic, and I have conveyed to the patient that he would very much benefit from additional inpatient psychiatric stabilization. He has declined to remain on the inpatient unit, and given that I have no basis to retain him involuntarily, I will arrange for his discharge AGAINST MEDICAL ADVICE. I have explained to the patient that he is leaving AGAINST MEDICAL ADVICE. Psychiatric follow-up as arranged by counselor. Patient also to follow -up with primary care. I have recommended that the patient abstain from use of cannabis and other substances of abuse as I do believe that it is deleterious to his mental health. I have counseled the patient regarding warning signs for need to return to the psychiatric emergency room as part of a general safety plan. I will continue the patient's Zyprexa on discharge. I will decrease the dose of patient's Depakote on discharge as I am not confident that he will obtain the requisite Depakote level and so the risks of Depakote toxicity outweigh the benefits of continuing him on an oral loading dose of Depakote on an ambulatory basis. Results Blood Pressure 140 / 84 Vital Signs Date Time Temp Pulse Resp B/P (MAP) Pulse Ox O2 Delivery O2 Flow Rate FiO2 01/03/17 05:45 98.0 84 17 140/84 (102) 99 Item Value Date Time White Blood Count 8.7 TH/MM3 01/03/17 1056 Hemoglobin 13.9 GM/DL 01/03/17 1056 Platelet Count 266 TH/MM3 01/03/17 1056 Sodium Level 139 MEQ/L 01/02/17 1440 Potassium Level 4.1 MEQ/L 01/02/17 1440 Chloride Level 102 MEQ/L 01/02/17 1440 Carbon Dioxide Level 30.1 MEQ/L 01/02/17 1440 Creatinine 0.87 MG/DL 01/02/17 1440 Blood Urea Nitrogen 11 MG/DL 01/02/17 1440 Estimat Glomerular Filtration Rate 101 ML/MIN 01/02/17 1440 Random Glucose 102 MG/DL 01/02/17 1440 Aspartate Amino Transf (AST/SGOT) 21 U/L 01/02/17 1440 Alanine Aminotransferase (ALT/SGPT) 29 U/L 01/02/17 1440 Alkaline Phosphatase 54 U/L 01/02/17 1440 Total Creatine Kinase 157 U/L 01/02/17 1440 Labs reviewed. CBC, CMP, CK all unremarkable. HgbA1c pending on discharge. Summary of Procedures None done Imaging None done Pending results at discharge: Yes (HgbA1c.) Medications # of Antipsychotic meds at D/C: 1 Approp Antipsych med options 1 - Minimum of three failed multiple trials of monotherapy. 2 - Documented plan to taper to monotherapy due to previous use of multiple meds OR cross-taper in progress at D/C. 3 - Documentation of augmentation of Clozapine. 4 - Justification other than those listed in allowable values 1-3, document here : Discharge Discharge Date: Jan 03, 2017 Discharge Diagnosis: (1) Bipolar 1 disorder, manic, moderate Diagnosis: Principal ICD Code: F31.12 - Bipolar disorder, current episode manic without psychotic features, moderate (2) Cannabis abuse Diagnosis: Secondary (counseled to quit) ICD Code: F12.10 - Cannabis abuse, uncomplicated Pt Condition on Discharge: Guarded (AMA discharge) Discharge Disposition: Discharge Home Discharge Instructions Diet Instructions: As Tolerated, No Restrictions Scheduled Appointment: as per counselor's notes. New Orders: AMMONIA - 3-5 Days DEPAKENE - 3-5 Days New Medications: Divalproex ER (Depakote ER) 500 Mg Lulu 1000 MG PO DAILY for Mental Health for 10 Days, TAB 2 Refills Olanzapine (Zyprexa) 10 Mg Tab 10 MG PO HS for Mental Health for 10 Days, TAB 2 Refills Continued Medications: Atorvastatin (Atorvastatin) 20 Mg Tab 20 MG PO HS for Cholesterol Management, #30 TAB 0 Refills Lisinopril (Lisinopril) 20 Mg Tab 20 MG PO DAILY, #30 TAB 0 Refills Discontinued Medications: Amitriptyline (Amitriptyline) 100 Mg Tab 100 MG PO HS, TAB Fluoxetine (Fluoxetine) 20 Mg Tab 20 MG PO DAILY, #30 TAB 0 Refills Ondansetron Odt (Zofran Odt) 4 Mg Tab 4 MG SL Q6HR PRN for Nausea/Vomiting, #30 TAB 0 Refills Prazosin (Prazosin) 1 Mg Cap 1 MG PO HS for Blood Pressure Management, #60 CAP 0 Refills Discharge Time > 30 minutes Mental Status Examination Appearance: Appropriate Consciousness: Alert Orientation: x4 Motor Activity: Normal gait, Other (no hand tremor, no dystonia, no dyskinesia , no other motoric abnormalities noted.) Speech: Pressured Language: Adequate Fund of Knowledge: Adequate Attention and Concentration: Easily Distracted Memory: Unremarkable Mood: Other (elevated) Affect: Other (expansive) Thought Process & Associations: Other (A little more linear today) Thought Content: Other (some grandiosity, not delusional in quality) Hallucination Type: None Delusion Type: None Suicidal Ideation: No Suicidal Plan: No Suicidal Intention: No Homicidal Ideation: No Homicidal Plan: No Homicidal Intention: No Insight: Poor Judgment: Poor Discharge/Advance Care Plan Health Problems: (1) Bipolar 1 disorder, manic, moderate (2) Cannabis abuse Goals to promote your health * To prevent worsening of your condition and complications * To maintain your health at the optimal level Directions to meet your goals Take your medications as prescribed Follow your dietary instruction Follow activity as directed Keep your appointments as scheduled Take your immunizations and boosters as scheduled If your symptoms worsen call your PCP, if no PCP go to Urgent Care Center or Emergency Room For 24/ questions related to your inpatient stay or results of tests pending at discharge, please contact Dr. Brock Page at Smoking is Dangerous to Your Health. Avoid second hand smoking Brock Page MD Jan 03, 2017 09:43
[2017-01-03 11:49] LABS: AUTOMATED NEUTROPHIL # 5.9 TH/MM3 (1.8-7.7); BASOPHIL # 0.3 TH/MM3 (0-0.2); BASOPHIL % 2.9 % (0.0-2.0); EOSINOPHIL # 0.2 TH/MM3 (0-0.4); EOSINOPHIL % 2.7 % (0.0-4.0); HEMATOCRIT 39.9 % (39.0-51.0); HEMO FLAGS DIFF FINAL; LYMPH % 20.6 % (9.0-44.0); LYMPHOCYTE # 1.8 TH/MM3 (1.0-4.8); MEAN CELL VOLUME 94.2 FL (80.0-100.0); MEAN CORPUSCULAR HEMOGLOBIN 32.7 PG (27.0-34.0); MEAN CORPUSCULAR HGB CONC 34.7 % (32.0-36.0); MONO % 5.9 % (0.0-8.0); NEUT % 67.9 % (16.0-70.0); PLATELET COUNT 266 TH/MM3 (150-450); RED BLOOD COUNT 4.24 MIL/MM3 (4.50-5.90); RED CELL DISTRIBUTION WIDTH 12.8 % (11.6-17.2); WHITE BLOOD COUNT 8.7 TH/MM3 (4.0-11.0)
[2017-01-03 11:50] LABS: LDL CHOLESTEROL 90 MG/DL (0-99)
[2017-01-03 16:27] LABS: HEMOGLOBIN A1b 0.9 %; HEMOGLOBIN Ao 87.1 %; HEMOGLOBIN F 0.7 %; HEMOGLOBIN LA1C 1.9 %; HEMOGLOBIN P3 3.4 %
== END 2017-01-03 13:00 | disposition left against medical advice (07) | DRG 885 ==
LOC: H270 23:00
PROVIDERS: ADMIT Psychiatry & Neurology Psychiatry; ATTEND Psychiatry & Neurology Psychiatry
DX: F31.12 Bipolar disorder, current episode manic without psychotic features, moderate (principal); I10 Essential (primary) hypertension; F12.10 Cannabis abuse, uncomplicated; E78.5 Hyperlipidemia, unspecified; F17.210 Nicotine dependence, cigarettes, uncomplicated; F43.10 Post-traumatic stress disorder, unspecified
CPT/HCPCS: 80053; 80061; 82550; 83036; 85025; 93005; Q0163

== ENCOUNTER 2017-01-05 09:35 | Inpatient (IN) | payer BC, OTHER ==
[~2017-01-05] VITALS: Ht 180.3 cm; Wt 116.2 kg
[~2017-01-05 09:35] MED LIST changes: -AMIT100T2 PO; +DEPA500T3 PO; -FLUO1TAB3 PO; -PRAZ1CAP PO; -ZOFR4TAB3 SL; +ZYPR10TA PO
[2017-01-05 09:40] VITALS: BP 142/72; PULSE 79; RESP 16; TEMP 98.2; O2SAT 100
--- NOTE | 2017-01-05 10:00 | PD ---
HPI Chief Complaint: Psychiatric Symptoms Time Seen by Provider: 09:59 Travel History International Travel<30 days: No Contact w/Intl Traveler<30days: No Traveled to known affect area: No History of Present Illness HPI 31-year-old male presents to the emergency department via EMS for psych screening. He is not Campos acted. He was apparently walking on the side of a road barefoot and someone called when EMS picked him up he was acting paranoid. He does have history of bipolar schizophrenia. He was just seen here on January 01 as Campos act. The patient states he is not suicidal or homicidal. He says he got in an argument with his mother because all he wanted was a cigarette, and so he left her house because she was telling him that all he does is drink and do drugs. He does admit to smoking marijuana, drinking alcohol and smoking cigarettes. Denies auditory or visual hallucinations. No known aggravating or relieving factors. Allergies to penicillins. No current emergent medical complaints. Denies chest pain, shortness of abdominal pain, nausea, vomiting, fevers, change in urinary or stool. No other modifying factors or associated signs and symptoms. PFSH Past Medical History AAA: No ADD: No ADHD: No Alzheimer's Disease: No Anemia: No Arthritis: No Asthma: Yes Atrial Fibrillation: No Autoimmune Disease: No Blood Disorders: No Bipolar Disorder: Yes Anxiety: Yes Depression: No Heart Rhythm Problems: No Cancer: No Cardiac Catheterization: No Cardiomyopathy: No Cardiovascular Problems: Yes Cerebral Palsy: No High Cholesterol: No Chemotherapy: No Chest Pain: No Congestive Heart Failure: No Cirrhosis: No COPD: No Cerebrovascular Accident: No Coronary Artery Disease: No Cystic Fibrosis: No Dementia: No Developmental Delay: No Diabetes: No Dialysis: No Diminished Hearing: No Diverticulitis: No Deep Vein Thrombosis: No Endocrine: No Fibromyalgia: No Gastrointestinal Disorders: No Genetic Disorder: No GERD: No Glaucoma: No Gout: No Genitourinary: No Headaches: No Hepatitis: No Hiatal Hernia: No Heparin Induced Thrombocytopen: No Herniated Disk: No Hypertension: Yes Immune Disorder: No Inguinal Hernia: No Implanted Vascular Access Dvce: No Insomnia: Yes Kidney Stones: No Musculoskeletal: No Neurologic: No Parkinson's Disease: No Psychiatric: Yes Reproductive: No Respiratory: Yes Resp. Syncytial Virus (RSV): No Integumentary: No Immunizations Current: Yes Migraines: No Myocardial Infarction: No Pancreatitis: No Pneumonia: No Radiation Therapy: No Schizophrenia: No Seizures: No Shingles: No Sickle Cell Disease: No Sleep Apnea: No Thyroid Disease: No Ulcer: No Menopausal: No Ectopic : No Ovarian Cysts: No Dilation and Curettage (D&C): No Tubal Ligation: No Past Surgical History Abdominal Aneurysm Repair: No Abdominal Surgery: Yes (APPENDICITIS) AICD: No Appendectomy: Yes Arteriovenous Shunt: No Cardiac Surgery: No Section: No Cholecystectomy: No Coronary Artery Bypass Graft: No Coronary Stent: No Ear Surgery: No Endocrine Surgery: No Eye Surgery: No Genitourinary Surgery: No Gynecologic Surgery: No Hysterectomy: No Insulin Pump: No Joint Replacement: No Mastectomy: No Neurologic Surgery: No Oral Surgery: Yes (WISDOM TEETH) Pacemaker: No Prostatectomy: No Thoracic Surgery: No Tonsillectomy: No Tympanostomy Tube: No Valve Replacement: No Other Surgery: No Family History Family Hypercholesterolemia: No Social History Alcohol Use: Yes Tobacco Use: Yes Substance Use: Yes (thc) Allergies-Medications (Allergen,Severity, Reaction): Coded Allergies: penicillin G (Verified Allergy, Severe, RASH, 01/05/17) Penicillins (Verified Allergy, Unknown, 01/05/17) Reported Meds & Prescriptions Reported Meds & Active Scripts Active Depakote ER (Divalproex Sodium) 500 Mg Lulu 1,000 Mg PO DAILY 10 Days Zyprexa (Olanzapine) 10 Mg Tab 10 Mg PO HS 10 Days Reported Lisinopril 20 Mg Tab 20 Mg PO DAILY Atorvastatin (Atorvastatin Calcium) 20 Mg Tab 20 Mg PO HS Review of Systems Except as stated in HPI: all other systems reviewed are Neg Physical Exam Narrative GENERAL: Well-nourished, well-developed male patient, in no acute distress SKIN: Warm and dry. HEAD: Atraumatic. Normocephalic. EYES: Pupils equal and round. ENT: Mucosa pink and moist. NECK: Supple. Trachea midline. CARDIOVASCULAR: Regular rate and rhythm. No murmur appreciated. RESPIRATORY: No accessory muscle use. Clear to auscultation. Breath sounds equal bilaterally. GASTROINTESTINAL: Abdomen soft, non-tender, nondistended. Hepatic and splenic margins not palpable. Bowel sounds are active 4 quadrants. MUSCULOSKELETAL: No obvious deformities. No clubbing. No cyanosis. No edema. NEUROLOGICAL: Awake and alert. Oriented 3. No obvious cranial nerve deficits. Motor grossly within normal limits. Normal speech. Moves all extremities. 5/5 strength to all extremities. PSYCHIATRIC: No delusional thought processes. No hallucinations. Data Data Last Documented VS Vital Signs Date Time Temp Pulse Resp B/P (MAP) Pulse Ox O2 Delivery O2 Flow Rate FiO2 01/05/17 09:40 98.2 79 16 142/72 (95) 100 Orders Orders Complete Blood Count With Diff (01/05/17 10:00) Comprehensive Metabolic Panel (01/05/17 10:00) Psych Screen (01/05/17 10:00) Drug Screen, Random Urine (01/05/17 10:00) Alcohol (Ethanol) (01/05/17 10:00) Salicylates (Aspirin) (01/05/17 10:00) Tylenol (Acetaminophen) (01/05/17 10:00) Labs Laboratory Tests Test 01/05/17 10:00 [facility] Medical Decision Making Medical Screen Exam Complete: Yes Emergency Medical Condition: Yes Medical Record Reviewed: Yes Differential Diagnosis Bipolar disorder, schizophrenia, medical clearance Narrative Course Patient presents voluntarily. Physical examination and vital signs are essentially unremarkable. Patient has no medical complaints to report. Psych screen has been ordered. If the laboratory results are unremarkable, the patient will be medically cleared for psychiatric evaluation and disposition. Diagnosis Primary Impression: Jason clearance for psychiatric evaluation Condition: Stable Annika Curran Jan 05, 2017 10:00
[2017-01-05 10:19] LABS: AUTOMATED NEUTROPHIL # 8.7 TH/MM3 (1.8-7.7); BASOPHIL # 0.1 TH/MM3 (0-0.2); BASOPHIL % 0.5 % (0.0-2.0); EOSINOPHIL # 0.2 TH/MM3 (0-0.4); EOSINOPHIL % 1.6 % (0.0-4.0); HEMO FLAGS DIFF FINAL; LYMPH % 17.6 % (9.0-44.0); LYMPHOCYTE # 2.2 TH/MM3 (1.0-4.8); MEAN CELL VOLUME 95.3 FL (80.0-100.0); MEAN CORPUSCULAR HEMOGLOBIN 32.8 PG (27.0-34.0); MEAN CORPUSCULAR HGB CONC 34.4 % (32.0-36.0); MONO % 8.9 % (0.0-8.0); NEUT % 71.4 % (16.0-70.0); PLATELET COUNT 267 TH/MM3 (150-450); RED CELL DISTRIBUTION WIDTH 13.1 % (11.6-17.2); WHITE BLOOD COUNT 12.3 TH/MM3 (4.0-11.0)
[2017-01-05] MEDS ORDERED: NICOTINE 21 MG/24 HR PATCH T-DERMAL ONE (10:30)
[2017-01-05 10:47] LABS: ANION GAP 9 MEQ/L (5-15); AST (GOT) 19 U/L (15-37); BLOOD UREA NITROGEN 13 MG/DL (7-18); CHLORIDE 100 MEQ/L (98-107); GLOMERULAR FILTRATION RATE 97 ML/MIN (>89); POTASSIUM 3.8 MEQ/L (3.5-5.1); SODIUM (NA) 138 MEQ/L (136-145)
[2017-01-05 11:01] LABS: ALKALINE PHOSPHATASE 56 U/L (45-117); ALT (GPT) 29 U/L (12-78); TOTAL BILIRUBIN ADULT 0.5 MG/DL (0.2-1.0)
[2017-01-05 11:03] LABS: ALCOHOL 7 MG/DL (0-5)
[2017-01-05 11:15] LABS: ACETAMINOPHEN LESS THAN 2.0 MCG/ML (10.0-30.0)
[2017-01-05 12:00] VITALS: BP 137/63; PULSE 77; RESP 18; TEMP 98.2; O2SAT 100
[2017-01-05] MEDS: NICOTINE 21 MG/24 HR PATCH T-DERMAL SCH (12:48)
[2017-01-05] MEDS ORDERED: diphenhydrAMINE HCL 50 MG/ML VIAL IM PRN (13:00)
[2017-01-05] MEDS ORDERED: LORazepam 2 MG/ML VIAL IM PRN (13:00)
[2017-01-05] MEDS ORDERED: ALUMINUM/MAGNESIUM/SIMETH 30 ML CUP PO PRN (13:00)
[2017-01-05] MEDS ORDERED: MAGNESIUM HYDROXIDE SUSP 30 ML CUP PO PRN (13:00)
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
[2017-01-05 15:26] VITALS: BP 164/76; PULSE 84; RESP 18; TEMP 98.7; O2SAT 99
[2017-01-05] MEDS: ACETAMINOPHEN 325 MG TAB PO PRN ×3 (15:38→21:43)
[2017-01-05] MEDS: LORazepam 1 MG TAB PO PRN (17:54)
[2017-01-05 18:09] VITALS: BP 164/76; PULSE 84; RESP 18; TEMP 98.7; O2SAT 99
[2017-01-05] MEDS: diphenhydrAMINE HCL 50 MG CAP PO PRN (21:43)
[2017-01-05] MEDS ORDERED: LORazepam 2 MG/ML VIAL IM ONE (22:30)
[2017-01-05] MEDS ORDERED: HALOPERIDOL LACTATE 5 MG/ML AMP IM ONE (22:30)
[2017-01-06] MEDS: LORazepam 1 MG TAB PO PRN ×3 (07:30→21:07)
[2017-01-06 08:09] VITALS: BP 131/78; PULSE 88; RESP 16; TEMP 98.1
[2017-01-06] MEDS: REMOVE OLD PATCH T-DERMAL SCH (08:10)
[2017-01-06] MEDS: NICOTINE 21 MG/24 HR PATCH T-DERMAL SCH (08:11)
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
[2017-01-06] MEDS: LISINOPRIL 20 MG TAB PO SCH (12:00)
[2017-01-06] MEDS ORDERED: ZIPRASIDONE MESYLATE 20 MG VIAL IM ONE ×2 (12:04→12:15)
[2017-01-06 12:18] LABS: BASOPHIL % 0.6 % (0.0-2.0); EOSINOPHIL # 0.1 TH/MM3 (0-0.4); EOSINOPHIL % 1.7 % (0.0-4.0); HEMATOCRIT 39.5 % (39.0-51.0); HEMO FLAGS DIFF FINAL; LYMPH % 20.2 % (9.0-44.0); LYMPHOCYTE # 1.7 TH/MM3 (1.0-4.8); MEAN CELL VOLUME 95.3 FL (80.0-100.0); MEAN CORPUSCULAR HGB CONC 34.6 % (32.0-36.0); NEUT % 70.5 % (16.0-70.0); PLATELET COUNT 248 TH/MM3 (150-450); RED BLOOD COUNT 4.14 MIL/MM3 (4.50-5.90); RED CELL DISTRIBUTION WIDTH 12.7 % (11.6-17.2); WHITE BLOOD COUNT 8.6 TH/MM3 (4.0-11.0)
[2017-01-06 12:51] LABS: ALT (GPT) 25 U/L (12-78); ANION GAP 7 MEQ/L (5-15); AST (GOT) 11 U/L (15-37); BICARBONATE 28.5 MEQ/L (21.0-32.0); BLOOD UREA NITROGEN 12 MG/DL (7-18); CHLORIDE 101 MEQ/L (98-107); GLOMERULAR FILTRATION RATE 107 ML/MIN (>89); POTASSIUM 4.2 MEQ/L (3.5-5.1); SODIUM (NA) 136 MEQ/L (136-145)
[2017-01-06 13:00] LABS: ALKALINE PHOSPHATASE 51 U/L (45-117); HDL CHOLESTEROL 42.3 MG/DL (40.0-60.0); LDL CHOLESTEROL 76 MG/DL (0-99); TOTAL BILIRUBIN ADULT 0.3 MG/DL (0.2-1.0)
[2017-01-06 13:44] LABS: HEMOGLOBIN A1a 1.1 %; HEMOGLOBIN A1b 0.9 %; HEMOGLOBIN Ao 86.9 %; HEMOGLOBIN F 0.7 %; HEMOGLOBIN LA1C 1.8 %; HEMOGLOBIN P3 3.4 %
[2017-01-06] MEDS: ACETAMINOPHEN 325 MG TAB PO PRN ×2 (14:41→20:05)
[2017-01-06 18:00] VITALS: BP 143/83; PULSE 91; RESP 19; TEMP 97.5; O2SAT 98
[2017-01-06] MEDS: diphenhydrAMINE HCL 50 MG CAP PO PRN (18:27)
[2017-01-06] MEDS: OLANZapine 10 MG TAB PO SCH (20:04)
[2017-01-06] MEDS: ATORVASTATIN 20 MG TAB PO SCH (20:05)
[2017-01-07] MEDS: ACETAMINOPHEN 325 MG TAB PO PRN ×2 (03:33→10:33)
[2017-01-07] MEDS: diphenhydrAMINE HCL 50 MG CAP PO PRN ×2 (03:33→23:18)
[2017-01-07] MEDS: LORazepam 1 MG TAB PO PRN ×4 (03:33→23:18)
[2017-01-07 05:56] VITALS: BP 138/90; PULSE 88; RESP 18; TEMP 97.8; O2SAT 99
[2017-01-07] MEDS: DIVALPROEX SODIUM E.R. 500 MG TAB PO SCH (08:02)
[2017-01-07] MEDS: REMOVE OLD PATCH T-DERMAL SCH (08:03)
[2017-01-07] MEDS: LISINOPRIL 20 MG TAB PO SCH (08:03)
[2017-01-07] MEDS: NICOTINE 21 MG/24 HR PATCH T-DERMAL SCH (08:03)
--- NOTE | 2017-01-07 08:46 | EKG ---
Date Performed: 01/06/2017 Time Performed: 09:47:18 PTAGE: 31 years EKG: Sinus rhythm Compared to prior tracing no significant change NORMAL ECG PREVIOUS TRACING : 01/02/2017 12.33 DOCTOR: Randall Alanis Interpretating Date/Time 01/07/2017 08:44:19
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
[2017-01-07 17:03] VITALS: BP 122/81; PULSE 89; RESP 18; TEMP 98.2; O2SAT 100
[2017-01-07] MEDS: ATORVASTATIN 20 MG TAB PO SCH (21:00)
[2017-01-07] MEDS: OLANZapine 10 MG TAB PO SCH (21:00)
[2017-01-08] MEDS: LORazepam 1 MG TAB PO PRN ×3 (05:51→20:27)
[2017-01-08] MEDS: ACETAMINOPHEN 325 MG TAB PO PRN ×3 (05:52→20:27)
[2017-01-08 06:08] VITALS: BP 133/94; PULSE 94; RESP 18; TEMP 98; O2SAT 98
[2017-01-08] MEDS: LISINOPRIL 20 MG TAB PO SCH (08:40)
[2017-01-08] MEDS: DIVALPROEX SODIUM E.R. 500 MG TAB PO SCH (08:40)
[2017-01-08] MEDS: NICOTINE 21 MG/24 HR PATCH T-DERMAL SCH (08:41)
[2017-01-08] MEDS: REMOVE OLD PATCH T-DERMAL SCH (08:41)
[2017-01-08] MEDS: OLANZapine 5 MG TAB PO SCH (12:00)
--- NOTE | 2017-01-08 15:24 | PD.TTN ---
Patient Problems 1. Discharge planning 2. Medication compliance 3. Knowledge deficit 4. Lack of coping skills Progress Toward Goals Provider Present: Dr. Joseluis Gracia Provider Input: Delusional. Petitioning the court for Campos Act Hearing. Miquel Stephen Jr, CLUSTER BORE OPERATOR Jan 08, 2017 15:24
--- NOTE | 2017-01-08 15:54 | HHI.PYPN ---
Subjective Chief Complaint: psychosis Remarks Patient seen for follow-up, chart review. Patient was noted to be less irritable today and engaging in interview. Patient continued to be noted to have slightly pressured speech but decreasing. Patient began to recant events that brought to the hospital and continues to endorse some grandiose delusions of having long-time investments come to for dictation which she plans on staying at [facility] upon discharge as well as plan to take a vacation with his recent and, body from his investments. He states that he has been feeling somewhat better but a bit frustrated that he is not able to pace in the hallway in the evening as he continues report having difficulty with sleep stating he only sleeps 2-4 hours per night. Patient continues to request discharge and it was explained again to patient the patient currently wants presented to mental health Court for petition for involuntary admission for stabilization. He states that he does not want to have alert represent him and he would like to represent himself at court. Review of Systems Except as stated in HPI: all other systems reviewed are Neg Mental Status Examination Appearance: Appropriate Consciousness: Alert Orientation: Person, Place, Date/Time Motor Activity: Normal gait Speech: Rapid Language: Perseveration (on discharge) Fund of Knowledge: Adequate Attention and Concentration: Easily Distracted Memory: Unremarkable Mood: Irritable (less so today) Affect: Irritable (less so today) Thought Process & Associations: Loose associations Thought Content: Bizarre thinking, Delusional (grandiose) Hallucination Type: None Delusion Type: Bizarre, Paranoid (with people having hacked to his bank account ), Other (persecutory) Suicidal Ideation: No Suicidal Plan: No Suicidal Intention: No Homicidal Ideation: No Homicidal Plan: No Homicidal Intention: No Insight: Poor Judgment: Impulsive Results Vitals/IOs Vital Signs Date Time Temp Pulse Resp B/P (MAP) Pulse Ox O2 Delivery O2 Flow Rate FiO2 01/08/17 06:08 98.0 94 18 133/94 (107) 98 Assessment & Plan Problem List: (1) Paranoid type schizophrenia, chronic state with acute exacerbation ICD Codes: F20.0 - Paranoid schizophrenia Assessment & Plan Patient is time continues to have grandiose delusions, paranoid delusions of people having acted to his accounts, and plans to go on vacation with his newly found investment money. Patient noted to have a decrease pressured speech noted to be less tangential with slight improvement in thought process. We'll increase Zyprexa to 5 mg a.m./ 10 mg at bedtime, we'll start doxepin 10 mg at bedtime for sleep disturbance. Monitor medication response and adverse drug reactions. Discharge planning in progress Justification for Cont. Inpt. At risk for further decompensation if at lower level of care Discharge Planning Patient return back to his residence once psychiatrically stable. Garth Gracia MD Jan 08, 2017 15:54
[2017-01-08] MEDS: diphenhydrAMINE HCL 50 MG CAP PO PRN (17:09)
[2017-01-08 17:40] VITALS: BP 147/72; PULSE 101; RESP 18; TEMP 98.4; O2SAT 98
[2017-01-08 20:32] VITALS: BP 121/58; PULSE 68; RESP 18; TEMP 98; O2SAT 99
[2017-01-08] MEDS: OLANZapine 10 MG TAB PO SCH (21:00)
[2017-01-08] MEDS: ATORVASTATIN 20 MG TAB PO SCH (21:00)
[2017-01-08] MEDS: DOXEPIN HCL 10 MG CAP PO SCH (21:00)
[2017-01-09] MEDS: ACETAMINOPHEN 325 MG TAB PO PRN (03:11)
[2017-01-09] MEDS: LORazepam 1 MG TAB PO PRN (05:12)
[2017-01-09 05:55] VITALS: BP 148/83; PULSE 95; RESP 16; TEMP 97.8; O2SAT 100
[2017-01-09] MEDS: DIVALPROEX SODIUM E.R. 500 MG TAB PO SCH (08:43)
[2017-01-09] MEDS: LISINOPRIL 20 MG TAB PO SCH (08:43)
[2017-01-09] MEDS: REMOVE OLD PATCH T-DERMAL SCH (08:43)
[2017-01-09] MEDS: OLANZapine 5 MG TAB PO SCH (08:43)
[2017-01-09] MEDS: NICOTINE 21 MG/24 HR PATCH T-DERMAL SCH (08:44)
[2017-01-09] MEDS: clonazePAM 0.5 MG TAB PO SCH ×2 (14:06→21:41)
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
[2017-01-09 17:19] VITALS: BP 128/77; PULSE 98; RESP 18; TEMP 100; O2SAT 98
[2017-01-09] MEDS: ATORVASTATIN 20 MG TAB PO SCH (21:00)
[2017-01-09] MEDS: DOXEPIN HCL 10 MG CAP PO SCH (21:00)
[2017-01-09] MEDS: OLANZapine 10 MG TAB PO SCH (21:00)
[2017-01-10] MEDS: clonazePAM 0.5 MG TAB PO SCH ×3 (05:31→21:08)
[2017-01-10] MEDS: ACETAMINOPHEN 325 MG TAB PO PRN (05:31)
[2017-01-10 05:42] VITALS: BP 129/67; PULSE 100; RESP 18; TEMP 97.2
[2017-01-10] MEDS: DIVALPROEX SODIUM E.R. 500 MG TAB PO SCH (08:21)
[2017-01-10] MEDS: LISINOPRIL 20 MG TAB PO SCH (08:23)
[2017-01-10] MEDS: OLANZapine 5 MG TAB PO SCH (08:23)
[2017-01-10] MEDS: REMOVE OLD PATCH T-DERMAL SCH (09:00)
[2017-01-10] MEDS: NICOTINE 21 MG/24 HR PATCH T-DERMAL SCH (09:00)
--- NOTE | 2017-01-10 14:15 | PD.TTN ---
Patient Problems 1. Discharge planning 2. Medication compliance 3. Knowledge deficit 4. Lack of coping skills Progress Toward Goals Provider Present: Dr. Joseluis Gracia Provider Input: Delusional. Petitioning the court for Campos Act Hearing. 01/10- Pt medication regiment will continue to be evaluated and changed as necessary. Family will be contacted to assess for their thoughts on pt progress. Nurse(s) Present: Anila Drummond RN Nurse(s) Input: Pt appears to be improving, is sleeping well, denies any auditory hallucinations, denies any suicidal/homicidal thoughts, has been no behavioral issue and is medication compliant. Psychiatric Counselors Present: LUIS Stein Psych Therapist Input: Pt shows improvement in symptom presentation but still remains somewhat manic, hyperverbal, grandiose, cooperative and appropriate. He presents with improving insight into condition and need for care yet still appears to minimize his mental illness. Pt has expressed that he would like to create large businesses and do extensive traveling though he does not have the means to do so. No noted agitation or aggression. He is compliant with medication regiment and treatment. Pt appears to be utilizing coping and emotional regulation skills as he has had no behavioral outbursts. Group Spec/RT/OT/MG Present: SAURAV Mcmullen Group Spec/RT/OT/MG Input: Pt attends exercise and pet therapy groups with encouragement. He presents with poor insight. Discharge Plan SMA Pt will return home to live with his mother and be linked to outpatient psychiatric follow up services. Documentation Scribe: LUIS Stein Jonathan LMHC Jan 10, 2017 14:15
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
[2017-01-10 17:47] VITALS: BP 135/76; PULSE 111; RESP 18; TEMP 98; O2SAT 100
[2017-01-10] MEDS: OLANZapine 10 MG TAB PO SCH (20:11)
[2017-01-10] MEDS: DOXEPIN HCL 10 MG CAP PO SCH (20:11)
[2017-01-10] MEDS: ATORVASTATIN 20 MG TAB PO SCH (20:11)
[2017-01-11 05:38] VITALS: BP 139/81; PULSE 87; RESP 18; TEMP 98.2; O2SAT 99
[2017-01-11] MEDS: clonazePAM 0.5 MG TAB PO SCH ×3 (05:47→21:27)
[2017-01-11] MEDS: DIVALPROEX SODIUM E.R. 500 MG TAB PO SCH (08:18)
[2017-01-11] MEDS: LISINOPRIL 20 MG TAB PO SCH (08:19)
[2017-01-11] MEDS: OLANZapine 5 MG TAB PO SCH (08:22)
[2017-01-11] MEDS: NICOTINE 21 MG/24 HR PATCH T-DERMAL SCH (08:22)
[2017-01-11] MEDS: REMOVE OLD PATCH T-DERMAL SCH (08:24)
--- NOTE | 2017-01-11 17:45 | HHI.PYPN ---
Subjective Chief Complaint: psychosis Remarks Patient seen follow, chart reviewed. Patient presented to mental health court today which patient did not testify but was noted to be upset that mother's testimony. Mother was concerned patient noncompliance with treatment and his penchant to use marijuana through a medical marijuana card which she required. Mental health court proceedings and concluded that petition for involuntary hospitalist was granted through court reheater helper. Patient later was noted to be upset due to ruling and felt that his mother had manipulated the proceedings that caused him to be retained. Patient was moved to a lower acuity unit due to his improvement recently. Patient later complained of his roommate activity noted to be slightly irritable. Review of Systems Except as stated in HPI: all other systems reviewed are Neg Mental Status Examination Appearance: Appropriate Consciousness: Alert Orientation: Person, Place, Date/Time Motor Activity: Normal gait Speech: Pressured (SL today) Language: Adequate Fund of Knowledge: Adequate Attention and Concentration: Easily Distracted Memory: Unremarkable Mood: Irritable Affect: Irritable Thought Process & Associations: Goal directed, Loose associations Thought Content: Delusional (grandiose) Hallucination Type: None Delusion Type: Paranoid (with people having hacked to his bank account), Other (grandiose) Suicidal Ideation: No Suicidal Plan: No Suicidal Intention: No Homicidal Ideation: No Homicidal Plan: No Homicidal Intention: No Insight: Poor Judgment: Impulsive Results Vitals/IOs Vital Signs Date Time Temp Pulse Resp B/P (MAP) Pulse Ox O2 Delivery O2 Flow Rate FiO2 01/11/17 17:18 01/11/17 05:38 98.2 87 18 99 Assessment & Plan Problem List: (1) Bipolar 1 disorder, manic, moderate ICD Codes: F31.12 - Bipolar disorder, current episode manic without psychotic features, moderate Assessment & Plan Patient continues to have some irritability but likely reactive to the petition for involuntary hospital rehabilitation being granted today. Patient to valproic acid level as well as CBC and BMP will be ordered for tomorrow morning a.m. Continue current treatment for now. Discharge planning in progress Justification for Cont. Inpt. At risk for further decompensation event lower level of care. Discharge Planning Patient to be discharged to her mother's residence or a hotel once psychiatrically stable. Garth Gracia MD Jan 11, 2017 17:45
[2017-01-11] MEDS: diphenhydrAMINE HCL 50 MG CAP PO PRN (18:22)
[2017-01-11] MEDS: ATORVASTATIN 20 MG TAB PO SCH (21:26)
[2017-01-11] MEDS: DOXEPIN HCL 10 MG CAP PO SCH (21:27)
[2017-01-11] MEDS: OLANZapine 10 MG TAB PO SCH (21:27)
[2017-01-11] MEDS: ACETAMINOPHEN 325 MG TAB PO PRN (21:27)
[2017-01-12 05:54] VITALS: BP 115/57; PULSE 61; RESP 16; TEMP 97.7; O2SAT 95
[2017-01-12] MEDS: clonazePAM 0.5 MG TAB PO SCH ×2 (06:21→13:46)
[2017-01-12] MEDS: LISINOPRIL 20 MG TAB PO SCH (08:41)
[2017-01-12] MEDS: OLANZapine 5 MG TAB PO SCH (08:41)
[2017-01-12] MEDS: DIVALPROEX SODIUM E.R. 500 MG TAB PO SCH (08:42)
[2017-01-12] MEDS: NICOTINE 21 MG/24 HR PATCH T-DERMAL SCH (09:00)
[2017-01-12] MEDS: REMOVE OLD PATCH T-DERMAL SCH (09:00)
[2017-01-12] MEDS: ACETAMINOPHEN 325 MG TAB PO PRN (09:33)
[2017-01-12 10:12] LABS: BICARBONATE 26.6 MEQ/L (21.0-32.0); POTASSIUM 4.1 MEQ/L (3.5-5.1)
[2017-01-12 10:18] LABS: INDIRECT BILIRUBIN 0.4 MG/DL (0.0-0.8); TOTAL BILIRUBIN ADULT 0.5 MG/DL (0.2-1.0)
[2017-01-12] MEDS ORDERED: OLAN10TA PO (14:23)
[2017-01-12] MEDS ORDERED: DOXE10CA PO (14:23)
[2017-01-12] MEDS ORDERED: ATOR20TA15 PO (14:23)
[2017-01-12] MEDS ORDERED: LISI-515 PO (14:23)
[2017-01-12] MEDS ORDERED: DIVA500T3 PO (14:23)
[2017-01-12] MEDS ORDERED: CLON.5 PO (14:23)
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
== END 2017-01-12 16:25 | disposition home or self-care (01) | DRG 885 ==
LOC: NEPD 09:35 → NEDA 12:49 → H260 15:07 → H270 22:24 → H260 01-11 12:35
PROVIDERS: ADMIT Student in an Organized Health Care Education/Training Program; ATTEND Student in an Organized Health Care Education/Training Program
DX: F20.0 Paranoid schizophrenia (principal); F31.10 Bipolar disorder, current episode manic without psychotic features, unspecified; I10 Essential (primary) hypertension; F17.210 Nicotine dependence, cigarettes, uncomplicated; F12.90 Cannabis use, unspecified, uncomplicated; F43.10 Post-traumatic stress disorder, unspecified; J45.909 Unspecified asthma, uncomplicated; Z88.0 Allergy status to penicillin; Z91.19 Patient's noncompliance with other medical treatment and regimen; Z91.410 Personal history of adult physical and sexual abuse
CPT/HCPCS: 80048; 80053; 80061; 80076; 80164; 80307; 82306; 82607; 83036; 84443; 85025; 93005; J1200; J1630; J2060; J3486; Q0163